=== PATIENT | female | born 1975 | race Asian ===

== ENCOUNTER → 2016-11-20 | Outpatient (CLI) | payer BC | LOC: BMCIMAGING 14:35 | PROVIDERS: ATTEND Internal Medicine | DX: M25.531 Pain in right wrist (principal) ==

== ENCOUNTER → 2016-11-22 | Outpatient (CLI) | payer BC | LOC: BMCIMAGING 15:10 | PROVIDERS: ATTEND Podiatrist Foot & Ankle Surgery | DX: M20.12 Hallux valgus (acquired), left foot (principal) ==